=== PATIENT | female | born 2005 | race Hispanic/Latino ===

== ENCOUNTER → 2025-01-30 14:13 | Outpatient (CLI) | payer SELFPAY ==
--- NOTE | 2025-01-30 14:20 | DI.RAD.S_ITS ---
PROCEDURE: XR CHEST 2V INDICATIONS: TB SCREENING TECHNIQUE: 2 views of the chest were acquired. COMPARISON: None. FINDINGS: Surgical changes and devices: None. Lungs and pleura: Lungs are clear. No pleural effusions or pneumothorax. Mediastinum: Mediastinal contours are normal. Heart size is normal. Bones and chest wall: No suspicious bony abnormalities. Soft tissues appear unremarkable. IMPRESSION: No acute cardiopulmonary abnormality is seen. Dictated by: Gomez Webb M.D. on 02/03/2025 at 10:55 Approved by: Gomez Webb M.D. on 02/03/2025 at 10:55
== END ==
PROVIDERS: Referring Provider Registered Nurse; Visit Provider Registered Nurse
DX: Z11.1 Encounter for screening for respiratory tuberculosis (principal)
CPT/HCPCS: 71046